=== PATIENT | female | born 1990 | race Caucasian/White ===

== ENCOUNTER → 2016-04-02 | Outpatient (CLI) | payer OTHER ==
--- NOTE | 2016-04-02 16:33 | REP ---
Obstetric sonography: History: Supervision of . Cervical length assessment. Findings: Scanning through the gravid uterus demonstrates a viable single intrauterine gestation in variable lie. motion is observed and heart rate is recorded at 150 beats per minute. A posterior fundal placenta is seen, grade 0, without evidence of placenta previa or abruption. Amniotic fluid is subjectively normal. Closed cervical length is 4.1 cm imaged transabdominally. No extrauterine abnormality is observed. No anomaly is seen. The following anatomic structures are identified and felt to be sonographically unremarkable: cranium, choroid plexus, cavum, cerebellum and posterior fossa, nuchal fold, face and profile, lungs, four-chamber heart with left and right ventricular outflow tract views, diaphragm, left-sided stomach, abdominal wall cord insertion, three-vessel umbilical cord, kidneys and bladder, spine, upper and lower extremities. Biometry chart: BPD 3.8 cm = 17 weeks 5 days HC 14.6 cm = 17 weeks 5 days AC 11.5 cm = 17 weeks 2 days FL 2.6 cm = 17 weeks 6 days CD 1.7 cm = 17 weeks 3 days HC/AC ratio normal 1.26. Cephalic index normal 0.72. Estimated weight 201 grams, 0 pounds 7 ounces, 41st percentile for 17 weeks 5 days. Impression: Viable single intrauterine gestation at 17 weeks 4 days by today's composite sonographic criteria. SABAS based on today's sonography September 06, 2016.
== END ==
LOC: M WHC 10:56
PROVIDERS: ATTEND Advanced Practice Midwife
DX: Z36 Encounter for antenatal screening of mother (principal); Z3A.17 17 weeks gestation of pregnancy

== ENCOUNTER → 2016-05-18 | Outpatient (CLI) | payer OTHER ==
--- NOTE | 2016-05-18 14:18 | REP ---
Right upper quadrant sonography: History: Right upper quadrant pain question stones. Comparison study: No comparison study. Findings: Scanning through the right upper quadrant of the abdomen demonstrates a normal sized, thin-walled gallbladder without evidence of stone or polyp. Common bile duct is normal measuring 0.5 cm in greatest diameter. No focal liver lesion is seen. Liver size is normal. No pancreatic abnormality is observed. No right renal abnormality is seen. There is no evidence of ascites. The right kidney measures 10.8 x 4.9 x 3.7 cm. A cephalic fetus is noted with a heart rate recorded at that time the study of 144 beats per minute. Impression: Negative right upper quadrant sonography. Signed by Cain Ellis MD 05/18/2016 02:10 P
== END ==
LOC: M RAD 08:45
PROVIDERS: ATTEND Obstetrics & Gynecology
DX: R10.11 Right upper quadrant pain (principal)

== ENCOUNTER → 2016-06-05 | Outpatient (CLI) | payer OTHER ==
[2016-06-05 18:21] LABS: ALBUMIN 2.7 GM/DL (3.2-5.2); ALBUMIN/GLOBULIN RATIO 0.79 (1.00-1.93); BILIRUBIN,DIRECT 0.1 MG/DL (0.0-0.2); BILIRUBIN,TOTAL 0.5 MG/DL (0.2-1.0); TOTAL PROTEIN 6.1 GM/DL (6.4-8.2)
[2016-06-05 19:14] LABS: MEAN CORPUSCULAR HEMOGLOBIN 34.2 pg (27.0-33.0); MEAN CORPUSCULAR HGB CONC 34.8 g/dl (32.0-36.5); MEAN CORPUSCULAR VOLUME 98.4 fl (80.0-96.0); RED CELL DISTRIBUTION WIDTH 12.9 % (11.5-14.5); WHITE BLOOD COUNT 8.4 K/mm3 (4.0-10.0)
[2016-06-09 00:06] LABS: HEPATITIS C QUANTITATION 1966010 IU/mL (.)
== END ==
LOC: M SMT 12:52
PROVIDERS: ATTEND Obstetrics & Gynecology
DX: Z34.82 Encounter for supervision of other normal pregnancy, second trimester (principal)
CPT/HCPCS: 36415; 80076; 82950; 85027; 86850; 86900; 86901; 87522; J2790